=== PATIENT | male | born 2005 | race Caucasian/White ===

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

== ENCOUNTER 2023-05-22 11:56 | Emergency (ER) | payer OTHER ==
[2023-05-22 12:12] VITALS: BP 110/82; PULSE 50; RESP 18; TEMP 98; BMI 21.9
[2023-05-22] MEDS ORDERED: TETRACAINE 0.5% HCL 0.6ML DROPPER.BOTTLE OD ONE (14:13)
[2023-05-22] MEDS ORDERED: FLUORESCEIN NA 1 EA STRIP OD ONE (14:13)
[2023-05-22] MEDS ORDERED: ERYTHROMYCIN 0.5% OPHTHALMIC OINTMENT 3.5 GM TUBE ONE (14:24)
[2023-05-22] MEDS ORDERED: ERYTHROMYCIN 0.5% OPHTHALMIC OINTMENT 3.5 GM TUBE OD SCH (14:30)
== END 2023-05-22 14:35 | disposition home or self-care (01) ==
LOC: JERFT 11:56
DX: H57.89 Other specified disorders of eye and adnexa (principal); H10.31 Unspecified acute conjunctivitis, right eye
CPT/HCPCS: 99283-25

== ENCOUNTER 2023-09-06 18:56 | Emergency (ER) | payer OTHER ==
[2023-09-06 19:26] VITALS: BP 124/60; PULSE 82; RESP 18; TEMP 98.6; BMI 23.3
[2023-09-06] MEDS ORDERED: FLUORESCEIN NA 1 EA STRIP OU ONE (21:49)
[2023-09-06] MEDS ORDERED: TETRACAINE 0.5% HCL 0.6ML DROPPER.BOTTLE OU ONE (21:49)
[2023-09-06] MEDS ORDERED: TETRACAINE 0.5% OPHTH SOLN 2 ML BOTTLE ONE (21:52)
[2023-09-06] MEDS ORDERED: FLUORESCEIN NA 1 EA STRIP ONE ×2 (21:52→21:58)
[2023-09-06] MEDS ORDERED: ERYTHROMYCIN 0.5% OPHTHALMIC OINTMENT 3.5 GM TUBE OU STA (22:05)
[2023-09-06] MEDS ORDERED: ERYTHROMYCIN 0.5% OPHTHALMIC OINTMENT 3.5 GM TUBE ONE (22:08)
== END 2023-09-06 22:12 | disposition home or self-care (01) ==
LOC: JERFT 18:56 → JER 18:56 → JERFT 22:12
DX: H10.9 Unspecified conjunctivitis (principal)
CPT/HCPCS: 99283-25